=== PATIENT | female | born 1960 | race Caucasian/White ===

== ENCOUNTER → 2018-10-20 19:28 | Outpatient (CLI) | payer BC | END | disposition home or self-care (01) | LOC: D.MAMMO 16:00 | DX: Z12.31 Encounter for screening mammogram for malignant neoplasm of breast (principal) ==

== ENCOUNTER → 2019-04-04 08:10 | Outpatient (CLI) | payer BC | END | disposition home or self-care (01) | LOC: D.ECHO 08:10 | PROVIDERS: ATTEND Nurse Practitioner | DX: R07.9 Chest pain, unspecified (principal) ==

== ENCOUNTER 2019-08-08 05:41 | Day surgery (SDC) | payer BC ==
[~2019-08-08] VITALS: Ht 152.4 cm; Wt 80.5 kg
[2019-08-08 05:59] LABS: HEMOGLOBIN 14.2 g/dL (12-16); MCH 32.4 pg (26.0-34.0); MCHC 34.6 g/dL (31.0-37.0); MCV 93.6 fL (80.0-100.0); MEAN PLATELET VOLUME 8.7 fL (7.4-10.4); RBC 4.38 10x6/uL (4.00-5.40); RDW 12.3 % (11.5-14.5)
[2019-08-08] MEDS ORDERED: LEVOTHYROXINE125 MCG PO (06:30)
[2019-08-08] MEDS ORDERED: NORVASC10 MG PO (06:30)
[2019-08-08] MEDS ORDERED: CELEBREX200 MG PO (06:31)
[2019-08-08] MEDS ORDERED: HCTZ25 MG PO (06:31)
[2019-08-08] MEDS ORDERED: VITAMIN B-122500 MCG PO (06:31)
[2019-08-08] MEDS ORDERED: VITAMIN D31000 UNIT PO (06:32)
[2019-08-08 06:33] VITALS: Ht 152.4 cm; Wt 80.5 kg
[2019-08-08 06:38] LABS: CALC OSMOLALITY 280 mosm/kg (275-300); CALCIUM 8.8 mg/dL (8.5-10.1); CARBON DIOXIDE 26.5 mmol/L (21.0-32.0); CHLORIDE - SERUM 106 mmol/L (98-107); CREATININE - SERUM 0.8 mg/dL (0.6-1.3); GLUCOSE 98 mg/dL (74-106); POTASSIUM - SERUM 4.1 mmol/L (3.5-5.1); SODIUM 142 mmol/L (136-145); UREA NITROGEN 8 mg/dL (7-18); eGFR NON AFRICAN AMERICAN 77 mL/min (90-120)
--- NOTE | 2019-08-08 08:58 | NUR ---
0849 PCXR COMPLETED AND WILL BE SENT STAT TO RADIOLOGIST. PT IS COUGHING LESS AT PRESENT. AWAKE AND TALKING. STATES THAT SHE ALWAYS GETS SICK WITH ANESTHESIA. TAKING SMALL SIPS OF WATER. DECREASED BNC TO 3L/MIN. PT O2 SAT IS 96% ON BNC 4.5L/MIN. PT STATES THE FLOW DOWN TO 3 FEELS BETTER TO HER.
--- NOTE | 2019-08-08 10:09 | NUR ---
0915 RESULTS OF CXR GIVEN TO DR STONE. HE WANTS TO SPEAK WITH HER PRIOR TO DISCHARGE HOME.
--- NOTE | 2019-08-08 10:10 | NUR ---
7235 PT DENIES CP OR SOB. STATES THAT SHE FEELS "CONGESTION IN UPPER CHEST LIKE A FROG IN THROAT" STATES SHE IS READY TO GO HOME. IV DC'D. CATHETER TIP INTACT. NO BLEEDING AT SITE. BANDAID APPLIED.
--- NOTE | 2019-08-08 10:15 | NUR ---
0957 PT DISCHARGED HOME VIA WC. VOICES THAT SHE UNDERSTANDS DISCHARGE INSTRUCTIONS AND HAS NO QUESTIONS AT THE MOMENT. PT KNOWS SHE CAN CALL OPS IF ANY QUESTIONS OR CONCERNS ARISE.
--- NOTE | 2019-08-08 15:59 | OP ---
PATIENT NAME: CHRIS ESTEVEZ MEDICAL RECORD: [id number] :56 [facility] DATE: SURGEON: DELMA STONE DO DATE OF OPERATION: 08/08/2019 PROCEDURE: Colonoscopy with polypectomy. INDICATIONS FOR PROCEDURE: Screening for colorectal cancer. SCOPE: Olympus video pediatric colonoscope. MEDICATIONS: Propofol 500 mg IV per anesthesia. WITHDRAWAL TIME: 9 minutes. ESTIMATED BLOOD LOSS: Minimal. COMPLICATIONS: No immediate complications, but during the procedure, it did appear that the patient refluxed versus vomited with a brief decrease in saturation, which has recovered spontaneously. FINDINGS: Informed consent was given. The patient was made comfortable with the above medication. After reaching an adequate level of sedation by slow IV push, the patient was placed in the left side. A digital rectal examination was performed and it was normal. The endoscope was then advanced under direct visualization through the rectum to the cecum, confirmed by the presence of the appendiceal orifice and ileocecal valve. The endoscope was slowly withdrawn and mucosa was carefully examined. The prep quality was good. There was 1 polyp visualized on today's examination. It was approximately 8-10 mm wide and flat. Appearances were consistent with a sessile serrated adenomatous polyp. Piecemeal polypectomy was performed using hot forceps. There was evidence of datg-eg-rgqdtijg diverticulosis involving the entire colon. There was no evidence of diverticulitis. Retroflexion was performed in the rectum with a visualization of a normal appearing rectal wall. The endoscope was withdrawn from the patient. The patient tolerated the procedure well. IMPRESSION: 1. A single transverse polyp was located. This was removed in a piecemeal fashion with hot forceps. 2. Vehx-le-xdgabgtb diverticulosis of the entire colon. PLAN AND RECOMMENDATIONS: 1. Discharge home when recovery parameters are met. 2. Follow up biopsy specimen results. 3. High fiber diet. 4. Continue current medications. 5. We will observe the patient post-procedurally for any signs of possible aspiration. If there is question of this, she may be sent home with Augmentin for outpatient antibiotic therapy. 6. Recall will be dependent on pathology, but I anticipate this needing to be 2-3 years at this time. TRANSINT:[id number] Voice Confirmation ID: [id number] DOCUMENT ID: [id number] OPERATIVE REPORT [id number] CHRIS ESTEVEZDELMA KUHN DO at 1559 CC: [id number] DICTATION DATE: 08/08/1926 CORPORATE RESPONSIBILITY OFFICER: 08/08/19 1124 [facility] 08/08/19 [facility] [address] [place] [address]
== END 2019-08-08 09:57 | disposition home or self-care (01) ==
LOC: D.OPS 05:41
PROVIDERS: Anesthesiology; ATTEND Internal Medicine Gastroenterology
DX: K63.5 Polyp of colon (principal); Z12.11 Encounter for screening for malignant neoplasm of colon; K57.90 Diverticulosis of intestine, part unspecified, without perforation or abscess without bleeding

== ENCOUNTER → 2020-06-08 08:10 | Outpatient (CLI) | payer BC ==
[2019-08-08 06:33] VITALS: BMI 34.6
[~2020-06-08 08:10] MED LIST: CELEBREX200 MG PO; HCTZ25 MG PO; LEVOTHYROXINE125 MCG PO; NORVASC10 MG PO; VITAMIN B-122500 MCG PO; VITAMIN D31000 UNIT PO
== END | disposition home or self-care (01) ==
LOC: D.HCCECHO 08:10
PROVIDERS: ATTEND Internal Medicine Cardiovascular Disease
DX: I10 Essential (primary) hypertension (principal); I44.7 Left bundle-branch block, unspecified

== ENCOUNTER 2020-06-21 07:01 | Day surgery (SDC) | payer BC ==
[~2020-06-21] VITALS: Ht 152.4 cm; Wt 68.9 kg
--- NOTE | ~2020-06-21 | HEMODYNAMI ---
PATIENT:CHRIS ESTEVEZ MEDICAL RECORD: [id number] : 56 LOCATION:[facility] ADMISSION DATE: 06/21/20 Generatedon:06/21/20209:36 Patient name: CHRIS ESTEVEZ Patient #: [id number] : 1960 Date of study: 06/21/2020 Page: Of Hemodynamic Procedure Report Patient Data Patient Demographics Procedure consent was obtained First Name: CHRIS Gender: Female Last Name: HERB : 1960 Patient #: [id number] Age: 60 year(s) Race: Unknown SSN: [id number] Additional ID: [id number] Contact details Address: [address] [place] [address] State: [place] City: [place] Zip code: [address] Past Medical History Allergies: No known allergies Admission Admission Data Admission Date: 06/21/2020 Admission Time: 7:01 Arrival Date: 06/21/2020 Arrival Time: 8:00 Admit Source: Other Insurance Payor: Private health insurance [facility] #: [id number] Height (in.): 59.84 BSA: 1.65 (m2) Height (cm.): 152 BMI: 29.43 (kg/m2) Weight (lbs.): 149.92 Weight (kg.): 68 Lab Results Lab Result Date: 06/21/2020 Lab Result Time: 0:00 Biochemistry Name Units Result Min Max BUN mg/dl 15 --(--*-)-- 7 18 Creatinine mg/dl 0.9 --(-*--)-- 0.6 1.3 eGFR ml/min 67.82795 *-(----)-- 90 120 NONAFRICAN CBC Name Units Result Min Max Hematocrit % 39.7 -*(----)-- 42 54 Hemoglobin g/dl 13.6 --(*---)-- 13.5 17.5 Procedure Procedure Types Cath Procedure Diagnostic Procedure LHC LHC w/Coronaries Sedation Charges Moderate Sedation up to 15 minutes Procedure Description Procedure Date Procedure Date: 06/21/2020 Procedure Start Time: 9:25 Procedure End Time: 9:33 Procedure Staff Name Function Leno Arnold MD Performing Physician Jeannine Benjamin RT Monitor Kelvin Bundy RT Scrub Les Faye RN Nurse Procedure Data Cath Procedure Fluoroscopy Diagnostic fluoroscopy Total fluoroscopy Time: 1.6 time: 1.6 min min Diagnostic fluoroscopy Total fluoroscopy dose: 332 dose: 332 mGy mGy Contrast Material Contrast Material Type Amount (ml) Isovue 300 30 Entry Location Entry Primary Successful Side Size Upsize Upsize Entry Closure Chakraborty ccessful Closure Location (Fr) 1 (Fr) 2 (Fr) Remarks Device Remarks Radial Right 6 Fr Mechanical artery Short Compression Estimated blood loss: 5 ml Diagnostic catheters Device Type Used For End Catheter Placement DIAGNOSTIC Franklin 110cm 5 Multi-vessel Fr catheter ([id number]) Angiography Procedure Complications No complications Procedure Medications Medication Administration Route Dosage Oxygen etCO2 Nasal cannula 2 l/min Heparin Flush Bag added to field 2 bags (1000units/500ml NS) 0.9% NaCl I.V. 100 ml/hr Lidocaine 2% added to field 20 Zofran I.V. 4 mg Fentanyl I.V. 50 mcg Versed I.V. 1 mg Fentanyl I.V. 50 mcg Versed I.V. 1 mg Fentanyl I.V. 50 mcg Radial Cocktail added to field 1 syringe (Verapamil 2mg/Nitro 400mcg/Heparin 1500units) Radial Cocktail I.A. 1 syringe (Verapamil 2mg/Nitro 400mcg/Heparin 1500units) Fentanyl I.V. 50 mcg Hemodynamics Rest BSA: 1.65 (m2) HGB: 13.6 (g/dl) O2 Consumption: Estimated: 145.6 (ml/min) O2 Con sumption indexed: Estimated:88.24 (ml/min/m) Heart Rate: 54 (bpm) Pressure Samples Time Site Value (mmHg) Purpose Heart Use Rate(bpm) 9:28 LV 44/6,17 Snapshot 52 9:29 AO 87/51(70) Pullback 73 9:29 LV 95/-3,3 Pullback 73 Gradients Valve Time Site 1 Site 2 Mean SEP/DFP Peak To Heart Use (mmHg) (sec/min) Peak Rate (mmHg) (bpm) Aortic 9:29 LV AO 10 15 8 73 95/-3,3 87/51(70) Calculations Valve P-P Mean Valve Index Valve Source Name Gradient Area Flow (cm2) Aortic 8 10 8 10 Snapshots Pre Cath Intra NCS Post Cath Vital Signs Time Heart Resp SPO2 etCO2 NIBP (mmHg) Rhythm Pain Sedation Rate (ipm) (%) (mmHg) Status Level (bpm) 9:06:53 58 17 100 41.9 150/73(97) NSR 0 (11) 10(A) , No pain 9:11:15 57 17 100 32.9 147/68(109) NSR 0 (11) 10(A) , No pain 9:15:37 54 16 100 40.4 136/66(96) NSR 0 (11) 10(A) , No pain 9:19:55 59 16 100 13.4 129/63(90) NSR 0 (11) 10(A) , No pain 9:24:11 56 17 100 21.7 116/63(85) NSR 0 (11) 10(A) , No pain 9:29:10 66 17 96 47.9 Measuring NSR 0 (11) 10(A) , No pain 9:29:22 64 16 97 48.6 91/54(73) NSR 0 (11) 10(A) , No pain 9:33:24 63 16 97 1.4 110/62(76) NSR 0 (11) 10(A) , No pain Medications Time Medication Route Dose Verified Delivered Reason Notes Effectiveness by by 9:08:11 Oxygen etCO2 2 l/min Leno Les Per Nasal Clayton Faye RN physician cannula 9:08:21 Heparin Flush added 2 bags Leno Les used for Bag to Clayton Faye photocopying equipment mechanic (1000units/500ml field NS) 9:08:29 0.9% NaCl I.V. 100 Leno Les Per ml/hr Clayton Faye RN physician 9:08:38 Lidocaine 2% added 20ml Leno Les used for to vial Clayton Faye photocopying equipment mechanic field 9:08:58 Zofran I.V. 4 mg Leno Les for nausea Clayton Faye RN 9:21:54 Fentanyl I.V. 50 mcg Leno Les for sedation Clayton Faye RN 9:22:01 Versed I.V. 1 mg Leno Les for sedation Clayton Faye RN 9:24:22 Fentanyl I.V. 50 mcg Leno Les for sedation Clayton Faye RN 9:24:27 Versed I.V. 1 mg Leno Les for sedation Clayton Faye RN 9:26:46 Fentanyl I.V. 50 mcg Leno Les for sedation Clayton Faye RN 9:28:15 Radial Cocktail added 1 Leno Les used for (Verapamil to syringe Clayton Faye RN procedure 2mg/Nitro field 400mcg/Heparin 1500units) 9:28:20 Radial Cocktail I.A. 1 Leno Leno for (Verapamil syringe Clayton Arnold MD vasodilation 2mg/Nitro 400mcg/Heparin 1500units) 9:29:24 Fentanyl I.V. 50 mcg Leno Les for sedation Clayton Faye RN Procedure Log Time Note 8:45:25 Les Faye RN sent for patient. Start room use. 8:53:45 Diagnostic Cath Status : Elective 8:59:26 Time tracking: Regular hours (M-F 7:00 - 5:00) 8:59:34 Plan of Care:Hemodynamics will remain stable., Cardiac rhythm will remain stable., Comfort level will be maintained., Respiratory function will remain adequate., Patient/ family verbilizes understanding of procedure., Procedure tolerated without complication., Recovers from procedure without complications.. 8:59:46 Patient received from Pre/Post Procedure Room to [facility] 1 Alert and oriented. Tansferred to table in Supine position. 8:59:48 Signed procedure consent form obtained from patient. 8:59:50 Warm blankets applied, and yamilet hugger turned on for patient comfort. 8:59:50 Correct patient and procedure confirmed by team. 8:59:50 ECG and BP/O2 sat monitors applied to patient. 9:02:01 Full Disclosure recording started 9:02:15 H&P Date Dictated: 05/22/2020 Within 30 days and on chart., H&P Addendum completed by physician on day of procedure. (MUST COMPLETE FOR ALL OUTPATIENTS). 9:02:15 Pre-procedure instructions explained to patient. 9:02:16 Pre-op teaching completed and patient verbalized understanding. 9:02:23 Family in patients room. 9:02:28 Patient NPO since Midnight. 9:02:33 Patient allergic to No known allergies 9:02:35 Is patient on blood thinner?No 9:02:37 Is the patient allergic to Iodine/contrast media? No. 9:02:38 Patient diabetic? No. 9:02:40 Previous problem with sedation/anesthesia? No ? 9:02:41 Snore? Yes 9:02:42 Sleep apnea? Yes 9:02:43 Deviated septum? No 9:02:44 Opens mouth fully? Yes 9:02:46 Sticks out tongue? No 9:02:48 Airway obstruction? No ? 9:02:50 Dentures? No ? 9:02:54 Pre procedure: right dorsailis pedis pulse 1+ Palpable, but thready & weak; easily obliterated 9:02:56 Modified Bismark's test Ulnar < 7 seconds 9:02:58 Patient pain scale 0/10 ?. 9:03:07 IV patent on arrival in left hand with 0.9% NaCl at [facility]. 9:04:56 Lab Result : BUN 15 mg/dl 9:04:56 Lab Result : Creatinine 0.9 mg/dl 9:04:56 Lab Result : eGFR NONAFRICAN 67.44360 ml/min 9:04:56 Lab Result : Hemoglobin 13.6 g/dl 9:04:56 Lab Result : Hematocrit 39.7 % 9:05:04 Lab results completed and on chart. 9:05:36 Right Radial & Right Groin area was prepped with chlora-prep and draped in sterile fashion 9:05:38 Alarms reviewed by R. N. 9:05:38 Sharps counted by scrub and verified by R.N. 9:05:45 Vital chart was started 9:08:11 Oxygen 2 l/min etCO2 Nasal cannula was administered by Les Faye RN; Per physician; Verbal order read back and verified. 9:08:21 Heparin Flush Bag (1000units/500ml NS) 2 bags added to field was administered by Les Faye RN; used for procedure; Verbal order read back and verified. 9:08:29 0.9% NaCl 100 ml/hr I.V. was administered by Les Faye RN; Per physician; Verbal order read back and verified. 9:08:38 Lidocaine 2% 20ml vial added to field was administered by Les Faye RN; used for procedure; Verbal order read back and verified. 9:08:58 Zofran 4 mg I.V. was administered by Les Faye RN; for nausea; Verbal order read back and verified. 9:11:51 Baseline sample Acquired. 9:12:44 Arrival Date: 06/21/2020 8:00:00 AM 9:13:04 Admit Source: Other 9:13:07 Insurance Payor : Private health insurance 9:13:17 Patient Height : 59.84 inches 9:13:20 Patient Weight : 149.92 lbs 9:14:06 Physician arrived 9:14:06 --------ALL STOP TIME OUT------ 9:14:07 Final Timeout: patient, procedure, and site verified with staff and physician. All members of the team are in agreement. 9:14:09 Right Radial & Right Groin site verified by team. 9:14:14 Fire Safety Assessment: A--An alcohol-based skin anteseptic being used preoperatively., C--Open oxygen or nitrous oxide is being used., D--An ESU, laser, or fiber-optic light is being used. 9:14:18 Physical assessment completed. ASA score P 2 - A patient with mild systemic disease as per Leno Arnold MD. 9:14:26 2) 60-89 Mildly reduced kidney function, and other findings (as for stage 1) point to kidney disease. 9:14:32 Maximum allowable contrast dose (3.7 X eGFR X 0.75)186 ml. 9:14:36 Sedation plan: IV Moderate Sedation Medication:Versed, Fentanyl 9:14:42 Use device set Radial Dx or PCI 9:14:43 ACIST Syringe (77588) opened to sterile field. 9:14:44 Medline Cath Pack ([id number]) opened to sterile field. 9:14:44 Bag Decanter () opened to sterile field. 9:14:45 ACIST Hand Control (43558) opened to sterile field. 9:14:45 ACIST Manifold (93708) opened to sterile field. 9:14:48 MBrace Wrist Support ([id number]) opened to sterile field. 9:14:49 NEEDLE Cook 21G 4cm Radial (X60329) opened to sterile field. 9:14:58 EMERALD Guide Wire (723-395) opened to sterile field. 9:14:59 SHEATH 6FR RAIN (2431146) opened to sterile field. 9:19:37 Zero performed for pressure channel P1 9:21:54 Fentanyl 50 mcg I.V. was administered by Les Faye RN; for sedation; Verbal order read back and verified. 9:22:01 Versed 1 mg I.V. was administered by Les Faye RN; for sedation; Verbal order read back and verified. 9:24:22 Fentanyl 50 mcg I.V. was administered by Les Faye RN; for sedation; Verbal order read back and verified. 9:24:27 Versed 1 mg I.V. was administered by Les Faye RN; for sedation; Verbal order read back and verified. 9:24:50 Procedure started. 9:25:20 Local anesthetic to right radial artery with Lidocaine 2% by Leno Arnold MD.INITIAL ACCESS ONLY 9:26:46 Fentanyl 50 mcg I.V. was administered by Les Faye RN; for sedation; Verbal order read back and verified. 9:26:56 A 6 Fr Short sheath was inserted into the Right Radial artery 9:27:38 A DIAGNOSTIC Franklin 110cm 5 Fr catheter ([id number]) was advanced over the wire and used for Multi-vessel Angiography. 9:28:15 Radial Cocktail (Verapamil 2mg/Nitro 400mcg/Heparin 1500units) 1 syringe added to field was administered by Les Faye RN; used for procedure; Verbal order read back and verified. 9:28:20 Radial Cocktail (Verapamil 2mg/Nitro 400mcg/Heparin 1500units) 1 syringe I.A. was administered by Leno Arnold MD; for vasodilation; Verbal order read back and verified. 9:28:28 LV hemodynamics recorded. 9:28:29 LV gram done using SCHERER 9:28:32 Injector settings: Ml/sec: 5, Volume: 15, 9:28:48 EF : 60 % 9:29:09 LCA angiography performed. 9:29:24 Fentanyl 50 mcg I.V. was administered by Les Faye RN; for sedation; Verbal order read back and verified. 9:29:31 Injector settings: Ml/sec: 3, Volume: 6, 9:30:14 Catheter removed. 9:30:16 RCA angiography performed. 9:30:20 Injector settings: Ml/sec: 3, Volume: 6, 9:30:37 Catheter removed. 9:30:39 ZEPHYR REGULAR TR BAND (847374) opened to sterile field. 9:31:08 Sheath removed intact; hemostasis achieved with Mechanical Compression to the Right Radial artery. 9:31:11 Procedure ended.(Physican Out) 9:31:28 Fluoroscopy time 01.60 minutes. 9:31:32 Fluoroscopy dose: 332 mGy 9:31:32 Flurop Dose total: 332 9:31:52 Dose Area Product 44283 mGy/cm. 9:32:04 Contrast amount:Isovue 300 30ml. 9:32:06 Maximum allowable dose exceeded? No. 9:32:11 Sharps counted by scrub and verified by R.N. 9:32:14 Cal[place]oun band inflated with 10cc of air. 9:32:16 Insertion/operative site no bleeding no hematoma. 9:32:21 Post right radial artery:stable 9:32:23 Post Procedure Pulses reassessed and unchanged 9:32:25 Post procedure rhythm: unchanged. 9:32:28 Estimated blood loss: 5 ml 9:32:29 Post procedure instruction explained to patient.Patient verbalizes understanding. 9:32:30 Patient needs reinforcement of post procedure teaching. 9:32:39 Procedure type changed to Cath procedure, Diagnostic procedure, C, [facility] w/Coronaries, Sedation Charges, Moderate Sedation up to 15 minutes 9:33:01 Procedure and supply charges have been captured, reviewed, submitted and are correct. 9:33:06 Procedure Complication : No complications 9:33:08 Vital chart was stopped 9:33:10 [facility] Findings: mild to moderate CAD (<70%) 9:33:12 Operative report dictated upon procedure completion. 9:33:12 See physician's report for complete and final results. 9:33:14 Report given to Pre/Post Procedure Room. 9:33:17 Patient transfered to Pre/Post Procedure Room with Stretcher. 9:33:21 Procedure ended. 9:33:21 Full Disclosure recording stopped 9:33:25 End room use (Document Last) 9:35:03 End room use (Document Last) 9:35:29 End room use (Document Last) Device Usage Item Name Manufacture Quantity Catalog Hospital Part Current Minima l Lot# / Number Charge Number Stock Stock Serial# Code ACIST Acist 1 09379 [id number] [id number] [id number] 20 Syringe Medical (93098) Systems Inc Medline Medline 1 [id number] 35666 048643 5 Cath Pack ([id number]) Bag Microtek 1 2001S 884301 10093 561241 5 Decanter Medical Inc. () ACIST Hand Acist 1 44629 151622 700535 540328 5 Control Medical (25747) Systems Inc ACIST Acist 1 76751 577051 332753 848610 5 Manifold Medical (65353) Systems Inc MBrace Advanced 1 140-0250-00 868764 12673 255795 5 Wrist Vascular Support Dynamics ([id number]) NEEDLE Cook Cook Medical 1 [id number] 063024 223690 373817 5 21G 4cm Radial (B45262) EMERALD Cardinal 1 502-658 440279 196890 758435 5 Guide Wire Health (665-335) SHEATH 6FR Cardinal 1 [id number] 224892 6448626 729681 5 [facility] (5159899) DIAGNOSTIC Terumo 1 49-9047 998509 786479 062268 5 Franklin 110cm 5 Fr catheter (123460) ZEPHYR Cardinal 1 265279 697030 [id number] 002233 5 REGULAR TR Health BAND (036021) Signature Audit [place] Stage Time Signature Unsigned Intra-Procedure 06/21/2020 Jeannine Benjamin 9:35:03 AM RT(R) Intra-Procedure 06/21/2020 Les Faye 9:35:29 AM RN Intra-Procedure 06/21/2020 Leno Arnold MD 9:36:21 AM [facility] [address] [place] [address]
[2020-06-21 08:03] VITALS: BP 117/70; Ht 152.4 cm; Wt 68.9 kg
[2020-06-21 08:08] LABS: BASOPHILS 0.7 % (0-2); EOSINOPHILS 2.7 % (0-7); HEMATOCRIT 39.7 % (36.0-48.0); HEMOGLOBIN 13.6 g/dL (12-16); IMMATURE GRANULOCYTES 0.2 % (0-5); LYMPHOCYTES 38.2 % (15-50); MCH 33.3 pg (26.0-34.0); MCHC 34.3 g/dL (31.0-37.0); MCV 97.1 fL (80.0-100.0); MONOCYTES 5.9 % (2-11); NEUTROPHILS 52.3 % (40-80); PLATELET COUNT 243 10x3/uL (130-400); RBC 4.09 10x6/uL (4.00-5.40); RDW 12.5 % (11.5-14.5); WBC 5.6 10x3/uL (4.8-10.8)
[2020-06-21 08:23] LABS: ANION GAP 10.8 mmol/L (8-16); CALCIUM 9.1 mg/dL (8.5-10.1); CARBON DIOXIDE 32.1 mmol/L (21.0-32.0); CHOL - HDL RATIO 2.6 ratio (2.3-4.1); CREATININE - SERUM 0.9 mg/dL (0.6-1.3); LDL-HDL RATIO 1.4 ratio (1.5-3.5); POTASSIUM - SERUM 3.9 mmol/L (3.5-5.1)
--- NOTE | 2020-06-21 09:48 | NUR ---
PT RECEIVED BACK TO ROOM VIA STRETCHER FOR RECOVERY. PT DROWSY, BUT VERBALLY AROUSABLE. DENIES PAIN OR DISCOMFORT AT THIS TIME. ZYPHER BAND AND IMMOBILIZER TO R WRIST/ARM, NO BLEEDING OR S/S HEMATOMA NOTED. ARM PINK AND WARM, CAP REFILL BRISK. PT PLACED ON CARDIAC MONITORS AND O2 VIA NC AT 2L. HR SB RATE 59, BP 109/57, RR 10, SAT 95 ON 2L/NC. PT INSTRUCTED NOT TO USE ARM, SHE VERBALIZED UNDERSTANDING. CALL LIGHT IN REACH. NO FAMILY PRESENT AT THIS TIME.
--- NOTE | 2020-06-21 10:07 | NUR ---
PT RESTING COMFORTABLY. ZBAND AND IMMOBILIZER IN PLACE, NO S/S HEMATOMA OR BLEEDING NOTED. CAP REFILL BRISK, ARM PINK AND WARM. HR 67, BP 102/58, RR 12, SAT 96. CALL LIGHT IN REACH
--- NOTE | 2020-06-21 11:05 | NUR ---
PT RESTING COMFORTALBY, 4CC AIR REMOVED FROM Z BAND, NO BLEEDING OR HEMATOMA NOTED. VSS. PT TOLERATING PO FLUIDS, OFFERED SANDWICH, PT DECLINES AT THIS TIME. CALL LIGHT IN REACH. DR GRIFFIN WAS AT BS, TALKED W PT REGARDING PROCDURE RESULTS AND PLAN OF CARE.
--- NOTE | 2020-06-21 11:43 | NUR ---
DISCHARGE INSTRUCTIONS REVIEWED W PT, SHE VERBALIZED UNDERSTANDING. IV REMOVED W CATH INTACT, MONITORS REMOVED. ZBAND AND IMMOBILIZER IN PLACE, NO S/S HEMATOMA. PT UP TO DRESS FOR DISCHARGE
--- NOTE | 2020-06-21 11:54 | NUR ---
ZBAND AND REMAINING AIR REMOVED, NO BLEEDING OR S/S HEMATOMA NOTED. 2X2 AND SM TEGADERM DRESSING APPLIED, IMMOBILIZER RE POSITIONED. PT DISCHARGED VIA WC TO SON WAITING IN PRIVATE VEHICLE. PT HAD ALL BELONGINGS AND DISCHARGE PAPERWORK
== END 2020-06-21 11:50 | disposition home or self-care (01) ==
LOC: D.CATH 07:01
PROVIDERS: ATTEND Internal Medicine Cardiovascular Disease
DX: I20.9 Angina pectoris, unspecified (principal); R94.39 Abnormal result of other cardiovascular function study; I10 Essential (primary) hypertension; I44.7 Left bundle-branch block, unspecified; R06.09 Other forms of dyspnea

== ENCOUNTER → 2020-07-18 13:56 | Outpatient (CLI) | payer BC ==
[2020-06-21 08:03] VITALS: BMI 29.6
== END | disposition home or self-care (01) ==
LOC: D.MRI 13:56
PROVIDERS: ATTEND Nurse Practitioner
DX: M54.5 Low back pain (principal)

== ENCOUNTER → 2020-07-27 15:45 | Outpatient (CLI) | payer BC ==
[2020-06-21 08:03] VITALS: BMI 29.6
== END | disposition home or self-care (01) ==
LOC: D.MRI 15:45
PROVIDERS: ATTEND Orthopaedic Surgery
DX: M25.531 Pain in right wrist (principal)

== ENCOUNTER → 2021-02-11 15:31 | Outpatient (CLI) | payer BC ==
[2020-06-21 08:03] VITALS: BMI 29.6
== END | disposition home or self-care (01) ==
LOC: D.MRI 15:30
PROVIDERS: ATTEND Neurological Surgery
DX: M54.12 Radiculopathy, cervical region (principal)

== ENCOUNTER → 2021-03-01 15:40 | Outpatient (CLI) | payer BC ==
[2020-06-21 08:03] VITALS: BMI 29.6
== END | disposition home or self-care (01) ==
LOC: D.MRI 15:40
PROVIDERS: ATTEND Nurse Practitioner Family
DX: M75.101 Unspecified rotator cuff tear or rupture of right shoulder, not specified as traumatic (principal)